=== PATIENT | male | born 1985 | race Asian ===

== ENCOUNTER 2018-06-23 12:10 | Observation (INO) ==
[~2018-06-23 12:10] MED LIST: CEFAZOLIN 1000MG 1,000 MG/7.5 ML SYR IV SCH; LR 15ML/HR IV SCH
--- NOTE | 2018-06-23 14:56 | Anesthesiology Consultation ---
Date of Service June 23, 2018 Assessment & Plan (1) Encounter for pre-operative examination: Chart Review Chart Review: Acceptable Risk for Surgery and Patient NOT seen in Pre Admission Testing Consults Requested none ASA ASA2 Proposed Anesthesia Anesthesia Type: General Risk / Benefits Reviewed With: PT / POA / Parent / Guardian, Accepts Plan and I nformed Consent Obtained NPO Date Last Intake of Fluids: 06/23/18 Time Last Intake of Fluids: 09:00 Date Last Intake of Solids: 06/23/18 Time Last Intake of Solids: 08:00 History Surgery Operation Date: 06/23/18 09:20 Proposed Procedures p Nasal Bleed Control - Mary Puga MD Height/Weight Height: 1.75 m Weight: 77 kg Allergies Allergy/AdvReac Type Severity Reaction Status Date / Time No Known Allergies Allergy Verified 06/23/18 13:16 Medications Home Medications Medication Instructions Recorded Confirmed Last Taken amoxicillin 500 mg PO BID 06/21/18 06/21/18 06/23/18 08:00 Past Medical History Medical History Epistaxis (Acute) No pertinent past medical history Denies any CP, SOB, GERD symptoms, n/v. Has been having intermittent nose bleed since . Feeling a little dizzy but has not had any syncopal episodes. H/o recent cold about 2 weeks ago that has now resolved. Past Family History Family History Other No pertinent family history in first degree relatives Past Surgical History Surgical History S/P excision of lipoma Status post lumbar surgery Past Anesthesia History No Hx of Anesthesia Complications and No Family Hx of Anesthesia Complications History of PONV No Motion Sickness Screening History of Motion Sickness: No Social History Smoking Status: Never smoker Hx Alcohol Use: No Hx Substance Use: No Exercise / Class Metabolic Activity II 4-5 Yardwork/Stairs/Walk up hill Physical Exam Vital Signs Last Vital Signs Temp 36.9 C 06/23/18 13:23 Pulse 99 H 06/23/18 13:23 Resp 18 06/23/18 13:23 BP 141/93 H 06/23/18 13:23 Pulse Ox 97 06/23/18 13:23 ENMT Mouth: no TMJ abnormality and no TMJ clicking Thyromental Distance: < 3.5 Finger Breadths Mallampati Class: II Neck normal visual inspection; neck extension not limited Respiratory Auscultation: lungs clear to auscultation bilaterally Cardiovascular Rate/Rhythm: regular rate and regular rhythm Psychiatric Orientation: alert and oriented x 3 Testing Laboratory Results 06/23/18 14:55 Laboratory Tests 06/21/18 06/21/18 06/21/18 02:44 02:44 02:44 WBC 13.65 H Hgb 14.8 Hct 42.2 Plt Count 258 PT 11.1 INR 1.1 APTT 28.1 Sodium 137 Potassium 3.9 Chloride 104 Carbon Dioxide 27 BUN 17 Creatinine 0.93 Glucose 116 H
[2018-06-23 15:05] LABS: Basophils # (auto) 0.02 K/uL (0-0.2); Basophils % (auto) 0.2 %; Eosinophils # (auto) 0.02 K/uL (0-0.5); Eosinophils % (auto) 0.2 %; Hematocrit (blood only) 35.5 % (42-52); Hemoglobin 12.3 g/dL (14.0-18.0); Immature Granulocytes # (auto) 0.02 K/uL (0.00-0.02); Immature Granulocytes % (auto) 0.2 %; Lymphocytes # (auto) 1.67 K/uL (1.2-3.4); Lymphocytes % (auto) 15.6 %; Mean Corpuscular Hgb Conc 34.6 g/dL (32-36); Mean Corpuscular Volume 90.3 fL (80-100); Mean Platelet Volume 8.4 fL (7.4-10.4); Monocytes # (auto) 1.07 K/uL (0.11-0.59); Neutrophils # (auto) 7.89 K/uL (1.4-6.5); Neutrophils % (auto) 73.8 %; Platelet Count 259 K/uL (130-400); RDW Coefficient of Variation 13.3 % (11.5-14.5); RDW Standard Deviation 43.6 fL (36.4-46.3); Red Blood Count 3.93 M/uL (4.7-6.1); White Blood Count 10.69 K/uL (4.8-10.8)
[2018-06-23] MEDS ORDERED: HYDROmorphone INJ 1 MG/ML SYRINGE IV PRN (15:31)
[2018-06-23] MEDS ORDERED: PHENYLEPHRINE 100MCG/ML 5ML SYR IV PRN (15:31)
[2018-06-23] MEDS ORDERED: fentaNYL citrate 100 MCG/2 ML VIAL IV PRN (15:31)
[2018-06-23] MEDS ORDERED: ATROPINE SULFATE 0.1 MG/ML 10ML SYR IV PRN (15:31)
[2018-06-23] MEDS ORDERED: ONDANSETRON INJ 2 MG/ML 2 ML VIAL IV PRN ×2 (15:31→20:19)
[2018-06-23] MEDS ORDERED: PROMETHAZINE HCL 12.5 MG in SODIUM CHLORIDE 0.9% 50 ML IV PRN (15:31)
[2018-06-23] MEDS ORDERED: ePHEDrine sulfate 50 MG/ML AMP IV PRN (15:31)
[2018-06-23] MEDS ORDERED: GELATIN SPONGE SZ 100 ONE (16:03)
[2018-06-23] MEDS ORDERED: MIDAZOLAM HCL 1 MG/ML 2ML VIAL ONE (16:09)
[2018-06-23] MEDS ORDERED: ONDANSETRON INJ 2 MG/ML 2 ML VIAL ONE (16:09)
[2018-06-23] MEDS ORDERED: DEXAMETHASONE SOD INJ 4 MG/ML VIAL ONE (16:09)
[2018-06-23] MEDS ORDERED: PROPOFOL IV EMULSION 10 MG/ML 20 ML VIAL IV ONE (16:09)
[2018-06-23] MEDS ORDERED: LIDOCAINE HCL 2% 2 ML VIAL/AMP(20MG/ML) INFIL ONE (16:09)
[2018-06-23] MEDS ORDERED: fentaNYL citrate 100 MCG/2 ML VIAL ONE (16:09)
[2018-06-23] MEDS ORDERED: SUCCINYLCHOLINE CHLORIDE 20 MG/ML 10 ML VIAL ONE (16:09)
[2018-06-23] MEDS ORDERED: LIDOCAINE/EPINE 2% 1:100,000 20ML ONE (16:41)
[2018-06-23] MEDS ORDERED: MUPIROCIN 2% OINT 22 GM TUBE ONE (16:41)
[2018-06-23] MEDS ORDERED: GELATIN SPONGE 12-7MM ONE (16:42)
[2018-06-23] MEDS ORDERED: LIDOCAINE 4% INH SOLN 4 ML BTL ONE (16:43)
[2018-06-23] MEDS ORDERED: EPINEPHrine INJ 1 MG/ML AMP ONE (16:44)
--- NOTE | 2018-06-23 17:07 | History & Physical Report ---
Date of Service June 23, 2018 Assessment & Plan (1) Epistaxis: endoscopic cautery, possible antral ligation History of Present Illness Chief Complaint: nose bleed Primary Care Provider: NO PCP 33 yo with persistent epistaxis x 4 days, seen in ER here and [place], still bleeds from left then right side Allergies Allergy/AdvReac Type Severity Reaction Status Date / Time No Known Allergies Allergy Verified 06/23/18 13:16 Home Medications Home Medications Medication Instructions Recorded Confirmed Type amoxicillin 500 mg PO BID 06/21/18 06/21/18 History Past Med/Surg History Medical History Epistaxis (Acute) No pertinent past medical history Surgical History S/P excision of lipoma Status post lumbar surgery Family History Other No pertinent family history in first degree relatives Social History Communication Ability: Effective Burial Needs Salesperson Required: No Beliefs That Will Affect Care: None Current Living Situation: Spouse Feels Safe at Home: Yes Safety Concerns: Feels Safe At This Time Smoking Status: Never smoker Hx Alcohol Use: No Hx Substance Use: No Physical Exam Vital Signs (Past 24 Hours): Last Vital Signs Temp 36.9 C 06/23/18 13:23 Pulse 99 H 06/23/18 13:23 Resp 18 06/23/18 13:23 BP 141/93 H 06/23/18 13:23 Pulse Ox 97 06/23/18 13:23 Constitutional: WD/WN, vitals as above Eyes: PERRL, conjunctivae normal, anicteric sclerae ENMT: Nose: + nasal discharge (blood from around left nasal packing) Neck: trachea midline, no thyromegaly Respiratory: normal respiratory effort, lungs clear to auscultation Cardiovascular: RRR, no murmur, no edema Chest (Breasts): Chest: normal inspection of chest Gastrointestinal (Abdomen): normal bowel sounds, soft, nontender, no hepatosplenomegaly
[2018-06-23] MEDS ORDERED: CEFAZOLIN 1,000 MG/7.5 ML IV PUSH IV ONE (17:09)
[2018-06-23] MEDS ORDERED: EpINEphrine HCL INJ 1 MG/ML 1ML SYRINGE ONE (19:29)
[2018-06-23] MEDS ORDERED: SURGICEL ABSORB HEMOSTAT 2IN X 14IN TOP ONE (19:35)
[2018-06-23] MEDS ORDERED: FLOSEAL HEMOSTATIC MATRIX 10ML TOP ONE (19:41)
[2018-06-23] MEDS ORDERED: MoRPHine SULFATE 4 MG/ML 1 ML CARP\\VIAL IV PRN (20:19)
[2018-06-23] MEDS ORDERED: CEFAZOLIN 1000MG 1,000 MG/7.5 ML SYR IV ONE (20:19)
[2018-06-23] MEDS ORDERED: ACETAMINOPHEN/HYDROCODONE ELIX 15 ML/CUP UDP PO PRN (20:19)
[2018-06-23] MEDS ORDERED: ACETAMINOPHEN SOL 650 MG/20.3 ML UDC PO PRN (20:19)
--- NOTE | 2018-06-23 20:19 | Operative Report ---
Post Operative Report Pre & Post Diagnosis Operation Date: 06/23/18 09:20 Pre-Op Diagnosis: Epistaxis Post-Op Diagnosis: Epistaxis Procedure Operation Date: 06/23/18 09:20 Actual Procedures p Left endoscopic cautery, Left Total Ethmoidectomy and left maxillary antrostomy- Mary Puga MD Surgeon Mary Puga MD Powder Mixer None Estimated Blood Loss 50 Findings Consistent with Post-Op Diagnosis Specimens Left ethmoid Anesthesia Type General Complications none Disposition Accompanied Patient To Recovery: Yes Disposition: Surgical ICU Indications 33-year-old male with persistent epistaxis for 4 days Description of Procedure He was brought to the operating room and placed in the supine position. He was prepped and draped in the usual sterile manner after general endotracheal anesthesia. The epi stat in the left nasal cavity was removed and then it was decongested using cottonoids with a topical solution of 4 cc of 4% Xylocaine mixed with 1 cc of epinephrine. The mucosa was brought from the previous cautery site along the septum and also along the inferior turbinate and also at the inferior border of the middle turbinate. However the bleeding site appeared to be coming from the ethmoids therefore the bullae ethmoidalis along with the maxillary ostia were opened and then the posterior ethmoid was opened through the ground lamella to expose the bleeding site which appears to be from a posterior ethmoid air cell near the posterior ethmoid artery and the bleeding site was then cauterized using the suction cautery followed by packing with Surgicel into the posterior ethmoid and then into the anterior ethmoid followed by FloSeal packing and Gelfoam packing along the floor of the nose filling the entire left nasal cavity. He tolerated the procedure well and was taken to the ICU for recovery. I attest to the content of the Intraoperative Record and any orders documented therein. Any exceptions are noted below.
--- NOTE | 2018-06-23 21:14 | Anesthesiology Progress Note ---
Date of Service June 23, 2018 Anesthesia Post Procedure Vital Signs Vital Signs: Temp Pulse Pulse Pulse Resp BP BP 06/23/18 21:09 37.4 C 96 H 14 145/94 H 06/23/18 20:50 37.2 C 93 H 14 148/92 H 06/23/18 20:40 102 H 22 150/98 H 06/23/18 20:30 94 H 12 143/99 H 06/23/18 20:20 90 12 144/104 H 06/23/18 20:13 36.3 C L 90 18 145/103 H 06/23/18 13:23 36.9 C 99 H 18 141/93 H 06/23/18 13:06 70 20 118/74 06/23/18 12:12 36.5 C 116 H 20 113/77 Pulse Ox 06/23/18 21:09 95 06/23/18 20:50 100 06/23/18 20:40 100 06/23/18 20:30 100 06/23/18 20:20 100 06/23/18 20:13 99 06/23/18 13:23 97 06/23/18 13:06 97 06/23/18 12:12 98 Pain Intensity Left Nose: Pain Intensity: 3 Notes Mental Status: alert / awake / arousable Patient Amnestic to Procedure: Yes Nausea / Vomiting: adequately controlled Pain: adequately controlled Airway Patency, RR, SpO2: stable & adequate BP & HR: stable & adequate Hydration State: stable & adequate Anesthetic Complications: no major complications apparent
[2018-06-23] MEDS: D5W AND 1/2NSS + 20MEQ KCL 20 MEQ/1,000 ML BAG IV SCH (22:40)
[2018-06-23] MEDS: DEXAMETHASONE SOD PHOSPHATE 6 MG in SYRINGE 0 ML IV SCH (22:41)
[2018-06-24] MEDS: DEXAMETHASONE SOD PHOSPHATE 6 MG in SYRINGE 0 ML IV SCH ×3 (05:56→18:47)
--- NOTE | 2018-06-24 08:21 | Discharge Summary ---
Date of Service June 24, 2018 Admission HPI Per Admitting Provider 33 yo with persistent epistaxis x 4 days, seen in ER here and [place], still bleeds from left then right side Admission Exam (Per Admitting) Constitutional WD/WN, vitals as above Eyes PERRL, conjunctivae normal, anicteric sclerae ENMT Nose: + nasal discharge (blood from around left nasal packing) Neck trachea midline, no thyromegaly Respiratory normal respiratory effort, lungs clear to auscultation Cardiovascular RRR, no murmur, no edema Chest (Breasts) Chest: normal inspection of chest Gastrointestinal (Abdomen) normal bowel sounds, soft, nontender, no hepatosplenomegaly Discharge Data Procedures Performed Operation Date: 06/23/18 09:20 Actual Procedures p Left endoscopic cautery, Left Total Ethmoidectomy - Mary Puga MD Hospital Course (1) Epistaxis: endoscopic cautery, possible antral ligation Discharge Instructions see discharge instructions sheet
--- NOTE | 2018-06-24 08:46 | Anesthesiology Progress Note ---
Date of Service June 24, 2018 Anesthesia Post Procedure Vital Signs Vital Signs: Temp Pulse Pulse Pulse Resp BP BP 06/24/18 07:18 36.9 C 76 16 06/24/18 03:10 36.6 C 108 H 20 06/23/18 23:57 37 C 90 18 06/23/18 22:53 37.1 C 94 H 17 132/86 06/23/18 22:00 36.7 C 95 H 17 142/90 H 06/23/18 21:30 36.8 C 100 H 18 134/93 06/23/18 21:09 37.4 C 96 H 14 145/94 H 06/23/18 20:50 37.2 C 93 H 14 148/92 H 06/23/18 20:40 102 H 22 150/98 H 06/23/18 20:30 94 H 12 143/99 H 06/23/18 20:20 90 12 144/104 H 06/23/18 20:13 36.3 C L 90 18 145/103 H 06/23/18 13:23 36.9 C 99 H 18 141/93 H 06/23/18 13:06 70 20 118/74 06/23/18 12:12 36.5 C 116 H 20 113/77 BP Pulse Ox 06/24/18 07:18 115/73 96 06/24/18 03:10 146/88 H 91 06/23/18 23:57 133/83 97 06/23/18 22:53 97 06/23/18 22:00 97 06/23/18 21:30 94 06/23/18 21:09 95 06/23/18 20:50 100 06/23/18 20:40 100 06/23/18 20:30 100 06/23/18 20:20 100 06/23/18 20:13 99 06/23/18 13:23 97 06/23/18 13:06 97 06/23/18 12:12 98 Notes Mental Status: alert / awake / arousable and participated in evaluation Nausea / Vomiting: adequately controlled Pain: adequately controlled Airway Patency, RR, SpO2: stable & adequate BP & HR: stable & adequate Hydration State: stable & adequate
[2018-06-24] MEDS: LORazepam 1 MG/2 ML VIAL IV PRN ×2 (10:19→22:40)
[2018-06-24] MEDS: D5W AND 1/2NSS + 20MEQ KCL 20 MEQ/1,000 ML BAG IV SCH (12:32)
[2018-06-25] MEDS: D5W AND 1/2NSS + 20MEQ KCL 20 MEQ/1,000 ML BAG IV SCH (00:24)
[2018-06-25] MEDS: DEXAMETHASONE SOD PHOSPHATE 6 MG in SYRINGE 0 ML IV SCH ×3 (00:24→11:27)
--- NOTE | 2018-06-25 07:58 | Surgery Progress Note ---
Date of Service June 25, 2018 Assessment & Plan (1) Epistaxis: Finally stopped bleeding, discharge to home, see me next Saturday Physical Exam Vital Signs (Past 24 Hours): Last Vital Signs Temp 37.0 C 06/25/18 07:34 Pulse 84 06/25/18 07:34 Resp 18 06/25/18 07:34 BP 135/81 06/25/18 07:34 Pulse Ox 97 06/25/18 07:34 Constitutional: WD/WN, vitals as above Eyes: PERRL, conjunctivae normal, anicteric sclerae ENMT: Nose: + nasal mucous membrane abnormality (left nares packing in place, finally stopped bleding) Neck: trachea midline, no thyromegaly Respiratory: normal respiratory effort, lungs clear to auscultation Cardiovascular: RRR, no murmur, no edema Chest (Breasts): Chest: normal inspection of chest Gastrointestinal (Abdomen): normal bowel sounds, soft, nontender, no hepatosplenomegaly
== END 2018-06-25 15:17 | disposition home or self-care (01) ==
LOC: ED 12:10 → 3W 13:05 → ASU 13:05